=== PATIENT | male | born 1950 | race Caucasian/White ===

== ENCOUNTER 2017-09-11 11:40 | Inpatient (IN) | payer MEDICARE, MEDICAID ==
[~2017-09-11] VITALS: Ht 180.3 cm; Wt 72.3 kg
[~2017-09-11 11:40] MED LIST: AMIO200T57 PO; APIX5TAB3 PO; ASPI-845 PO; CARV-50 PO; FURO-149 PO; LISI-642 PO; NITR0.4T48 SL
[2017-09-11] MEDS ORDERED: mag hydrox/Alum hydrox/simeth 30ml oral suspension PO PRN (12:20)
[2017-09-11] MEDS ORDERED: acetaminophen 325mg tablet PO PRN ×2 (12:20)
[2017-09-11] MEDS ORDERED: magnesium hydroxide 30ml (MOM) UD suspension PO PRN (12:20)
[2017-09-11] MEDS ORDERED: LACT1CAP26 PO (13:37)
[2017-09-11] MEDS ORDERED: CEPH500C2 PO (13:37)
[2017-09-11] MEDS ORDERED: MELA3TAB PO (13:37)
[2017-09-11] MEDS ORDERED: nitroGLYCERIN 0.4mg SUBLingual tab SL PRN (14:00)
[2017-09-11 18:57] LABS: CHOL/HDL RATIO 4.7 (0.00-4.99); CHOLESTEROL 140 MG/DL (0-200); HDL CHOLESTEROL 30 MG/DL (35-60); LDL CHOLESTEROL 92 MG/DL (50-100); TRIGLYCERIDES 118 MG/DL (20-135)
[2017-09-11 19:00] VITALS: BP 118/74
[2017-09-11] MEDS: oxyCODONE/APAP 10/325mg tablet PO PRN ×2 (19:12→22:08)
[2017-09-11] MEDS: lactobacillus rhamnosus 10,000 MMU CELLS/CAPSULE PO SCH (20:21)
[2017-09-11] MEDS: Melatonin 3mg tablet PO SCH (20:22)
[2017-09-11] MEDS: cephalexin 500mg capsule PO SCH (20:22)
[2017-09-12] MEDS: oxyCODONE/APAP 10/325mg tablet PO PRN ×3 (05:32→19:02)
[2017-09-12 08:00] VITALS: BP 106/69
[2017-09-12] MEDS: furosemide 40mg tablet PO SCH (08:06)
[2017-09-12] MEDS: cephalexin 500mg capsule PO SCH ×3 (08:06→21:34)
[2017-09-12] MEDS: apixaban 5mg tablet PO SCH (08:06)
[2017-09-12] MEDS: aspirin 325mg tablet, delayed-release (Ecotrin) PO SCH (08:06)
[2017-09-12] MEDS: lactobacillus rhamnosus 10,000 MMU CELLS/CAPSULE PO SCH ×2 (08:06→21:33)
[2017-09-12] MEDS: amiodarone 200mg tablet PO SCH (15:42)
[2017-09-12 20:00] VITALS: BP 99/61
[2017-09-12 21:00] VITALS: BP 105/60
[2017-09-12] MEDS: carVEDilol 3.125mg tablet PO SCH (21:33)
[2017-09-12] MEDS: Melatonin 3mg tablet PO SCH (21:34)
[2017-09-12] MEDS: traZODone 50mg tablet PO PRN (22:24)
[2017-09-13] MEDS: oxyCODONE/APAP 10/325mg tablet PO PRN ×4 (01:41→20:33)
[2017-09-13] MEDS: traZODone 50mg tablet PO PRN (01:42)
[2017-09-13 08:00] VITALS: BP 109/75
[2017-09-13] MEDS: amiodarone 200mg tablet PO SCH (08:08)
[2017-09-13] MEDS: cephalexin 500mg capsule PO SCH ×3 (08:08→20:30)
[2017-09-13] MEDS: carVEDilol 3.125mg tablet PO SCH ×2 (08:09→20:30)
[2017-09-13] MEDS: apixaban 5mg tablet PO SCH (08:10)
[2017-09-13] MEDS: aspirin 325mg tablet, delayed-release (Ecotrin) PO SCH (08:10)
[2017-09-13] MEDS: duloxetine 30mg CAPSULE.DR PO SCH (08:10)
[2017-09-13] MEDS: lactobacillus rhamnosus 10,000 MMU CELLS/CAPSULE PO SCH ×2 (08:10→20:30)
[2017-09-13 19:00] VITALS: BP 108/65
[2017-09-13] MEDS ORDERED: traZODone 50mg tablet PO SCH (21:00)
[2017-09-14] MEDS: oxyCODONE/APAP 10/325mg tablet PO PRN ×4 (01:43→20:13)
[2017-09-14 08:00] VITALS: BP 112/62
[2017-09-14] MEDS: carVEDilol 3.125mg tablet PO SCH ×2 (08:20→20:13)
[2017-09-14] MEDS: amiodarone 200mg tablet PO SCH (08:20)
[2017-09-14] MEDS: lactobacillus rhamnosus 10,000 MMU CELLS/CAPSULE PO SCH ×2 (08:20→20:14)
[2017-09-14] MEDS: duloxetine 30mg CAPSULE.DR PO SCH ×2 (08:20→13:55)
[2017-09-14] MEDS: apixaban 5mg tablet PO SCH (08:20)
[2017-09-14] MEDS: cephalexin 500mg capsule PO SCH ×3 (08:20→20:14)
[2017-09-14] MEDS: furosemide 40mg tablet PO SCH (08:21)
[2017-09-14] MEDS: aspirin 325mg tablet, delayed-release (Ecotrin) PO SCH (08:21)
[2017-09-14 09:43] LABS: BASOPHILS # (AUTO) 0.1 X10'3 (0-0.2); BASOPHILS % (AUTO) 1.1 % (0-1); EOSINOPHILS # (AUTO) 0.2 X10'3 (0-0.9); EOSINOPHILS % (AUTO) 1.9 % (0-6); HEMATOCRIT 26.8 % (42.0-52.0); HEMOGLOBIN 8.9 g/dl (14.0-17.9); LYMPHOCYTES % (AUTO) 20.3 % (21-51); MEAN CORPUSCULAR HEMOGLOBIN 30.9 PG (27.0-31.0); MEAN CORPUSCULAR HGB CONC 33.4 % (33.0-36.5); MEAN CORPUSCULAR VOLUME 92.6 FL (78-98); MEAN PLATELET VOLUME 8.5 FL (7.4-10.4); MONOCYTES # (AUTO) 0.9 X10'3 (0-0.9); MONOCYTES % (AUTO) 9.1 % (2-12); NEUTROPHILS # (AUTO) 6.7 X10'3 (1.8-7.7); NEUTROPHILS % (AUTO) 67.6 % (42-75); PLATELET COUNT 266 X10'3 (140-440); RED CELL DISTRIBUTION WIDTH 14.8 % (11.5-14.5); WHITE BLOOD COUNT 9.9 X10'3 (4.5-11.0)
[2017-09-14 19:00] VITALS: BP 107/54
[2017-09-14] MEDS: traZODone 50mg tablet PO SCH (22:00)
[2017-09-15] MEDS: oxyCODONE/APAP 10/325mg tablet PO PRN ×4 (04:22→22:07)
[2017-09-15 08:00] VITALS: BP 110/67
[2017-09-15] MEDS: amiodarone 200mg tablet PO SCH (08:19)
[2017-09-15] MEDS: cephalexin 500mg capsule PO SCH ×3 (08:19→22:02)
[2017-09-15] MEDS: apixaban 5mg tablet PO SCH (08:19)
[2017-09-15] MEDS: carVEDilol 3.125mg tablet PO SCH ×2 (08:19→22:05)
[2017-09-15] MEDS: aspirin 325mg tablet, delayed-release (Ecotrin) PO SCH (08:19)
[2017-09-15] MEDS: duloxetine 30mg CAPSULE.DR PO SCH ×2 (08:19→13:12)
[2017-09-15] MEDS: lactobacillus rhamnosus 10,000 MMU CELLS/CAPSULE PO SCH ×2 (08:19→22:05)
[2017-09-15 19:00] VITALS: BP 94/63
[2017-09-15] MEDS: traZODone 50mg tablet PO SCH (22:04)
[2017-09-16] MEDS: oxyCODONE/APAP 10/325mg tablet PO PRN ×4 (03:20→21:57)
[2017-09-16 08:00] VITALS: BP 111/67
[2017-09-16] MEDS: carVEDilol 3.125mg tablet PO SCH ×2 (08:30→21:57)
[2017-09-16] MEDS: duloxetine 30mg CAPSULE.DR PO SCH ×2 (08:30→15:47)
[2017-09-16] MEDS: apixaban 5mg tablet PO SCH (08:30)
[2017-09-16] MEDS: amiodarone 200mg tablet PO SCH (08:30)
[2017-09-16] MEDS: furosemide 40mg tablet PO SCH (08:30)
[2017-09-16] MEDS: cephalexin 500mg capsule PO SCH ×3 (08:30→21:55)
[2017-09-16] MEDS: aspirin 325mg tablet, delayed-release (Ecotrin) PO SCH (08:30)
[2017-09-16] MEDS: lactobacillus rhamnosus 10,000 MMU CELLS/CAPSULE PO SCH ×2 (08:30→21:56)
[2017-09-16 20:00] VITALS: BP 110/62
[2017-09-16] MEDS: traZODone 50mg tablet PO SCH (21:56)
[2017-09-17] MEDS: oxyCODONE/APAP 10/325mg tablet PO PRN ×5 (02:13→23:15)
[2017-09-17] MEDS ORDERED: ondansetron 4mg rapidly disintigrating tab PO ONE (07:20)
[2017-09-17 08:00] VITALS: BP 103/64
[2017-09-17] MEDS: cephalexin 500mg capsule PO SCH (08:00)
[2017-09-17] MEDS: lactobacillus rhamnosus 10,000 MMU CELLS/CAPSULE PO SCH ×2 (08:35→19:07)
[2017-09-17] MEDS: amiodarone 200mg tablet PO SCH (09:24)
[2017-09-17] MEDS: aspirin 325mg tablet, delayed-release (Ecotrin) PO SCH (10:04)
[2017-09-17] MEDS: apixaban 5mg tablet PO SCH (10:04)
[2017-09-17] MEDS: carVEDilol 3.125mg tablet PO SCH ×2 (10:04→19:07)
[2017-09-17] MEDS ORDERED: ondansetron 4mg rapidly disintigrating tab PO PRN (11:20)
[2017-09-17 20:00] VITALS: BP 95/56
[2017-09-17] MEDS: traZODone 50mg tablet PO SCH (23:15)
[2017-09-18 08:00] VITALS: BP 101/66
[2017-09-18] MEDS: lactobacillus rhamnosus 10,000 MMU CELLS/CAPSULE PO SCH ×2 (08:01→19:55)
[2017-09-18] MEDS: apixaban 5mg tablet PO SCH (08:02)
[2017-09-18] MEDS: aspirin 325mg tablet, delayed-release (Ecotrin) PO SCH (08:03)
[2017-09-18] MEDS: furosemide 40mg tablet PO SCH (08:03)
[2017-09-18] MEDS: amiodarone 200mg tablet PO SCH (08:03)
[2017-09-18] MEDS: carVEDilol 3.125mg tablet PO SCH ×2 (08:03→19:55)
[2017-09-18] MEDS: oxyCODONE/APAP 10/325mg tablet PO PRN ×4 (08:31→23:52)
[2017-09-18] MEDS: docusate sod 100mg capsule PO PRN (20:00)
[2017-09-18 20:07] VITALS: BP 98/59
[2017-09-18] MEDS: traZODone 50mg tablet PO SCH (21:00)
[2017-09-18] MEDS ORDERED: traZODone 150mg tablet PO ONE (23:30)
[2017-09-19] MEDS: oxyCODONE/APAP 10/325mg tablet PO PRN ×4 (07:53→21:04)
[2017-09-19] MEDS: carVEDilol 3.125mg tablet PO SCH ×2 (08:00→21:02)
[2017-09-19 08:41] VITALS: BP 92/56
[2017-09-19] MEDS: apixaban 5mg tablet PO SCH (08:48)
[2017-09-19] MEDS: amiodarone 200mg tablet PO SCH (08:48)
[2017-09-19] MEDS: lactobacillus rhamnosus 10,000 MMU CELLS/CAPSULE PO SCH ×2 (08:48→21:02)
[2017-09-19] MEDS: aspirin 325mg tablet, delayed-release (Ecotrin) PO SCH (08:48)
[2017-09-19] MEDS ORDERED: venlafaxine XR 37.5mg cap (Q24H) PO ONE (12:20)
[2017-09-19 19:05] VITALS: BP 117/71
[2017-09-20] MEDS: traZODone 50mg tablet PO SCH ×2 (00:51→22:35)
[2017-09-20] MEDS: oxyCODONE/APAP 10/325mg tablet PO PRN ×5 (01:07→22:35)
[2017-09-20 08:00] VITALS: BP 111/65
[2017-09-20] MEDS ORDERED: venlafaxine XR 75mg capsule (Q24H) PO SCH (08:00)
[2017-09-20 08:02] LABS: BASOPHILS # (AUTO) 0.1 X10'3 (0-0.2); BASOPHILS % (AUTO) 0.7 % (0-1); EOSINOPHILS # (AUTO) 0.2 X10'3 (0-0.9); EOSINOPHILS % (AUTO) 2.2 % (0-6); HEMATOCRIT 28.6 % (42.0-52.0); HEMOGLOBIN 9.4 g/dl (14.0-17.9); LYMPHOCYTES % (AUTO) 23.7 % (21-51); MEAN CORPUSCULAR HEMOGLOBIN 29.8 PG (27.0-31.0); MEAN CORPUSCULAR HGB CONC 32.9 % (33.0-36.5); MEAN CORPUSCULAR VOLUME 90.6 FL (78-98); MONOCYTES # (AUTO) 0.8 X10'3 (0-0.9); MONOCYTES % (AUTO) 9.5 % (2-12); NEUTROPHILS # (AUTO) 5.5 X10'3 (1.8-7.7); NEUTROPHILS % (AUTO) 63.9 % (42-75); PLATELET COUNT 323 X10'3 (140-440); RED BLOOD COUNT 3.16 X10'6 (4.70-6.10); RED CELL DISTRIBUTION WIDTH 14.9 % (11.5-14.5); WHITE BLOOD COUNT 8.6 X10'3 (4.5-11.0)
[2017-09-20] MEDS: carVEDilol 3.125mg tablet PO SCH ×2 (08:11→20:00)
[2017-09-20] MEDS: amiodarone 200mg tablet PO SCH (08:11)
[2017-09-20] MEDS: lactobacillus rhamnosus 10,000 MMU CELLS/CAPSULE PO SCH ×2 (08:11→22:34)
[2017-09-20] MEDS: aspirin 325mg tablet, delayed-release (Ecotrin) PO SCH (08:11)
[2017-09-20] MEDS: apixaban 5mg tablet PO SCH (08:12)
[2017-09-20] MEDS: furosemide 40mg tablet PO SCH (08:13)
[2017-09-20] MEDS: venlafaxine 37.5mg tablet PO SCH (09:10)
[2017-09-20 20:00] VITALS: BP 89/60
[2017-09-21 05:35] VITALS: BP 106/68
[2017-09-21] MEDS ORDERED: aspirin 325mg tablet PO ONE (05:45)
[2017-09-21] MEDS ORDERED: furosemide 40mg tablet PO PRN (05:55)
[2017-09-21] MEDS: oxyCODONE/APAP 10/325mg tablet PO PRN ×2 (06:58→12:29)
[2017-09-21] MEDS: carVEDilol 3.125mg tablet PO SCH (08:00)
[2017-09-21 08:09] VITALS: BP 117/70
[2017-09-21 08:13] VITALS: BP 97/66
[2017-09-21] MEDS: aspirin 325mg tablet, delayed-release (Ecotrin) PO SCH (08:14)
[2017-09-21] MEDS: lactobacillus rhamnosus 10,000 MMU CELLS/CAPSULE PO SCH (08:15)
[2017-09-21] MEDS: venlafaxine 37.5mg tablet PO SCH (08:15)
[2017-09-21] MEDS: apixaban 5mg tablet PO SCH (08:15)
[2017-09-21] MEDS: amiodarone 200mg tablet PO SCH (08:15)
[2017-09-21 08:42] LABS: TROPONIN I 0.4 NG/ML (0.0-0.05)
[2017-09-21 09:43] VITALS: BP 95/66
[2017-09-21 13:25] VITALS: BP 115/77
[2017-09-21] MEDS ORDERED: LACT10SO (16:40)
== END 2017-09-21 14:58 | disposition short-term general hospital (02) | DRG 885 ==
LOC: ADULT MH 11:40
PROVIDERS: ADMIT Psychiatry & Neurology Psychiatry; ATTEND Psychiatry & Neurology Psychiatry
DX: F33.2 Major depressive disorder, recurrent severe without psychotic features (principal); R45.851 Suicidal ideations; F11.11 Opioid abuse, in remission; F41.9 Anxiety disorder, unspecified; I11.0 Hypertensive heart disease with heart failure; I48.0 Paroxysmal atrial fibrillation; I25.10 Atherosclerotic heart disease of native coronary artery without angina pectoris; D64.9 Anemia, unspecified; B19.20 Unspecified viral hepatitis C without hepatic coma; I50.9 Heart failure, unspecified; Z86.73 Personal history of transient ischemic attack (TIA), and cerebral infarction without residual deficits; I25.2 Old myocardial infarction; Z95.1 Presence of aortocoronary bypass graft; Z79.899 Other long term (current) drug therapy; Z79.01 Long term (current) use of anticoagulants; Z79.82 Long term (current) use of aspirin
CPT/HCPCS: 36415; 71045; 80061; 83880; 84484; 85025; 87070; 93005; A6213; A6255; A6257

== ENCOUNTER 2017-09-21 15:14 | Inpatient (IN) | payer MEDICARE, MEDICAID ==
[~2017-09-21] VITALS: Ht 180.3 cm; Wt 72.0 kg
[~2017-09-21 15:14] MED LIST changes: +CEPH500C2 PO; +LACT1CAP26 PO; +MELA3TAB PO
[2017-09-21] MEDS ORDERED: magnesium 4gm in 100ml NS 100 ML IV PRN (15:15)
[2017-09-21] MEDS ORDERED: HYDROcodone/acetaminophen 10/325mg tab PO PRN (15:15)
[2017-09-21] MEDS ORDERED: ondansetron/PF 4mg/2ml inj IV PRN (15:15)
[2017-09-21] MEDS ORDERED: bisacodyl 10mg suppository rectal RC PRN (15:15)
[2017-09-21] MEDS ORDERED: acetaminophen 325mg tablet PO PRN (15:15)
[2017-09-21] MEDS ORDERED: morphine 4 MG/ML inj SYRINge IV PRN ×2 (15:15)
[2017-09-21] MEDS ORDERED: potassium Cl 20 mEq SR tablet PO PRN ×2 (15:15)
[2017-09-21] MEDS ORDERED: magnesium hydroxide 30ml (MOM) UD suspension PO PRN (15:15)
[2017-09-21] MEDS ORDERED: magnesium 2GM in 50ml NS 50 ML IV PRN (15:15)
[2017-09-21] MEDS ORDERED: mag hydrox/Alum hydrox/simeth 30ml oral suspension PO PRN (15:15)
[2017-09-21] MEDS ORDERED: magnesium Cl slow-release 64mg tablet PO PRN (15:15)
[2017-09-21] MEDS ORDERED: potassium Cl 40MEQ/NS 500ml 500 ML IV PRN ×2 (15:15)
[2017-09-21] MEDS ORDERED: HYDROcodone/acetaminophen 5mg/325mg tablet PO PRN (15:15)
[2017-09-21] MEDS ORDERED: nitroGLYCERIN 0.4mg SUBLingual tab SL PRN (15:20)
[2017-09-21 15:40] VITALS: BP 110/67
[2017-09-21] MEDS ORDERED: nitroGLYCERIN 0.2mg/hour patch TD SCH (15:50)
[2017-09-21 16:19] LABS: BASOPHILS # (AUTO) 0.1 X10'3 (0-0.2); BASOPHILS % (AUTO) 0.6 % (0-1); EOSINOPHILS # (AUTO) 0.1 X10'3 (0-0.9); EOSINOPHILS % (AUTO) 1.5 % (0-6); HEMATOCRIT 28.6 % (42.0-52.0); HEMOGLOBIN 9.6 g/dl (14.0-17.9); LYMPHOCYTES # (AUTO) 2.4 X10'3 (1.1-4.8); LYMPHOCYTES % (AUTO) 27.7 % (21-51); MEAN CORPUSCULAR HEMOGLOBIN 29.9 PG (27.0-31.0); MEAN CORPUSCULAR HGB CONC 33.4 % (33.0-36.5); MEAN CORPUSCULAR VOLUME 89.6 FL (78-98); MEAN PLATELET VOLUME 8.1 FL (7.4-10.4); MONOCYTES % (AUTO) 11.3 % (2-12); NEUTROPHILS # (AUTO) 5.1 X10'3 (1.8-7.7); NEUTROPHILS % (AUTO) 58.9 % (42-75); PLATELET COUNT 315 X10'3 (140-440); RED CELL DISTRIBUTION WIDTH 14.8 % (11.5-14.5); WHITE BLOOD COUNT 8.7 X10'3 (4.5-11.0)
[2017-09-21] MEDS ORDERED: LACT10SO (16:40)
[2017-09-21 16:41] LABS: ALANINE AMINOTRANSFERASE 24 U/L (12-78); ALBUMIN/GLOBULIN RATIO 0.7 (1.1-1.5); ALKALINE PHOSPHATASE 78 IU/L (46-116); ANION GAP 9 (8-16); ASPARTATE AMINO TRANSFERASE 28 U/L (10-37); BILIRUBIN,TOTAL 0.3 MG/DL (0.1-1.0); BLOOD UREA NITROGEN 21 MG/DL (7-18); BUN/CREATININE RATIO 14.6 (5.4-32.0); CALCIUM 8.5 MG/DL (8.5-10.1); CHLORIDE 102 MMOL/L (99-107); CREATININE 1.44 MG/DL (0.60-1.10); GLUCOSE 101 MG/DL (70-104); SODIUM 140 MMOL/L (135-145); TOTAL CARBON DIOXIDE 28.6 MMOL/L (24-32); TOTAL PROTEIN 7.1 G/DL (6.4-8.2); eGFR 49 ML/MIN
[2017-09-21 16:50] LABS: TROPONIN I 0.42 NG/ML (0.0-0.05)
[2017-09-21 18:00] VITALS: BP 102/60
[2017-09-21] MEDS ORDERED: carVEDilol 12.5mg tablet PO SCH (20:00)
[2017-09-21] MEDS: apixaban 5mg tablet PO SCH (20:41)
[2017-09-21] MEDS: cephalexin 500mg capsule PO SCH (20:41)
[2017-09-21] MEDS: carVEDilol 3.125mg tablet PO SCH (20:41)
[2017-09-21] MEDS: docusate sod 100mg capsule PO SCH (20:42)
[2017-09-21] MEDS: Melatonin 3mg tablet PO SCH (20:42)
[2017-09-21] MEDS ORDERED: CEPHALEXIN MONOHYDRATE PO SCH (21:00)
[2017-09-21] MEDS: traZODone 150mg tablet PO SCH (21:52)
[2017-09-21] MEDS: oxyCODONE/APAP 10/325mg tablet PO PRN (21:53)
[2017-09-21 22:00] VITALS: BP 94/57
[2017-09-22 02:00] VITALS: BP 96/56
[2017-09-22] MEDS: oxyCODONE/APAP 10/325mg tablet PO PRN ×5 (03:19→23:23)
[2017-09-22 05:53] LABS: ALANINE AMINOTRANSFERASE 21 U/L (12-78); ALBUMIN 2.6 G/DL (3.4-5.0); ALBUMIN/GLOBULIN RATIO 0.7 (1.1-1.5); ALKALINE PHOSPHATASE 68 IU/L (46-116); ANION GAP 8 (8-16); ASPARTATE AMINO TRANSFERASE 28 U/L (10-37); BILIRUBIN,TOTAL 0.3 MG/DL (0.1-1.0); BLOOD UREA NITROGEN 19 MG/DL (7-18); BUN/CREATININE RATIO 15.2 (5.4-32.0); CALCIUM 8.1 MG/DL (8.5-10.1); CHLORIDE 104 MMOL/L (99-107); CHOL/HDL RATIO 4.6 (0.00-4.99); CHOLESTEROL 111 MG/DL (0-200); CREATININE 1.25 MG/DL (0.60-1.10); GLUCOSE 105 MG/DL (70-104); HDL CHOLESTEROL 24 MG/DL (35-60); LDL CHOLESTEROL 71 MG/DL (50-100); MAGNESIUM 2.1 MG/DL (1.5-2.4); POTASSIUM 3.8 MMOL/L (3.5-5.1); SODIUM 139 MMOL/L (135-145); TOTAL CARBON DIOXIDE 26.8 MMOL/L (24-32); TOTAL PROTEIN 6.2 G/DL (6.4-8.2); TRIGLYCERIDES 90 MG/DL (20-135); eGFR 58 ML/MIN
[2017-09-22 06:00] VITALS: BP 107/69
[2017-09-22] MEDS: docusate sod 100mg capsule PO SCH ×2 (07:31→20:00)
[2017-09-22] MEDS: cephalexin 500mg capsule PO SCH ×3 (07:31→20:20)
[2017-09-22] MEDS: apixaban 5mg tablet PO SCH ×2 (07:32→20:21)
[2017-09-22] MEDS: carVEDilol 3.125mg tablet PO SCH ×2 (07:32→20:21)
[2017-09-22] MEDS: aspirin 81mg tablet.DR PO SCH (07:32)
[2017-09-22] MEDS: amiodarone 200mg tablet PO SCH (07:32)
[2017-09-22] MEDS: furosemide 20MG tablet PO SCH (07:32)
[2017-09-22] MEDS: lisinopril 2.5mg tablet PO SCH (07:32)
[2017-09-22] MEDS: venlafaxine XR 37.5mg cap (Q24H) PO SCH (07:33)
[2017-09-22] MEDS ORDERED: K and/or MAG REPLACEMENT MC SCH (08:00)
[2017-09-22] MEDS ORDERED: lisinopril 5mg tablet PO SCH (08:00)
[2017-09-22 11:00] VITALS: BP 90/54
[2017-09-22] MEDS: nitroGLYCERIN 0.4mg/hour patch TD SCH (11:08)
[2017-09-22 15:00] VITALS: BP 97/56
[2017-09-22 18:00] VITALS: BP 102/52
[2017-09-22] MEDS: Melatonin 3mg tablet PO SCH (20:20)
[2017-09-22] MEDS: lactobacillus rhamnosus 10,000 MMU CELLS/CAPSULE PO SCH (20:21)
[2017-09-22 22:00] VITALS: BP 96/50
[2017-09-22] MEDS: traZODone 150mg tablet PO SCH (23:23)
[2017-09-23 02:00] VITALS: BP 94/43
[2017-09-23] MEDS: oxyCODONE/APAP 10/325mg tablet PO PRN ×2 (05:55→12:53)
[2017-09-23 06:11] LABS: ALANINE AMINOTRANSFERASE 24 U/L (12-78); ALBUMIN 2.8 G/DL (3.4-5.0); ALBUMIN/GLOBULIN RATIO 0.8 (1.1-1.5); ALKALINE PHOSPHATASE 69 IU/L (46-116); ANION GAP 9 (8-16); ASPARTATE AMINO TRANSFERASE 28 U/L (10-37); BILIRUBIN,TOTAL 0.3 MG/DL (0.1-1.0); BLOOD UREA NITROGEN 15 MG/DL (7-18); CALCIUM 8.4 MG/DL (8.5-10.1); CHLORIDE 104 MMOL/L (99-107); CREATININE 1.15 MG/DL (0.60-1.10); GLUCOSE 104 MG/DL (70-104); MAGNESIUM 2.2 MG/DL (1.5-2.4); POTASSIUM 3.9 MMOL/L (3.5-5.1); SODIUM 141 MMOL/L (135-145); TOTAL CARBON DIOXIDE 27.7 MMOL/L (24-32); TOTAL PROTEIN 6.5 G/DL (6.4-8.2); eGFR 64 ML/MIN
[2017-09-23 07:00] VITALS: BP 99/60
[2017-09-23] MEDS ORDERED: furosemide 40mg tablet PO SCH (08:00)
[2017-09-23] MEDS ORDERED: COR3.125T PO (11:05)
[2017-09-23] MEDS ORDERED: NIT10P TD ×2 (11:05→13:32)
[2017-09-23] MEDS ORDERED: ASPI-1071 PO (11:05)
[2017-09-23] MEDS ORDERED: EFF37.5XRC PO (11:05)
[2017-09-23] MEDS ORDERED: TRAZ150T78 PO ×2 (11:05→13:32)
[2017-09-23] MEDS: lactobacillus rhamnosus 10,000 MMU CELLS/CAPSULE PO SCH (11:21)
[2017-09-23] MEDS: aspirin 81mg tablet.DR PO SCH (11:21)
[2017-09-23] MEDS: docusate sod 100mg capsule PO SCH (11:21)
[2017-09-23] MEDS: carVEDilol 3.125mg tablet PO SCH (11:21)
[2017-09-23] MEDS: amiodarone 200mg tablet PO SCH (11:21)
[2017-09-23] MEDS: cephalexin 500mg capsule PO SCH (11:22)
[2017-09-23] MEDS: furosemide 20MG tablet PO SCH (11:22)
[2017-09-23] MEDS: apixaban 5mg tablet PO SCH (11:22)
[2017-09-23] MEDS: venlafaxine XR 37.5mg cap (Q24H) PO SCH (11:22)
[2017-09-23] MEDS: lisinopril 2.5mg tablet PO SCH (11:22)
[2017-09-23] MEDS: nitroGLYCERIN 0.4mg/hour patch TD SCH (11:22)
[2017-09-23] MEDS ORDERED: ASPI-611 PO (13:25)
[2017-09-23] MEDS ORDERED: VENL37.55 PO (13:32)
[2017-09-23] MEDS ORDERED: CARV3.12 PO (13:32)
[2017-09-24] MEDS ORDERED: LISI-604 PO (16:50)
[2017-09-24] MEDS ORDERED: OXYC-511 PO (18:56)
== END 2017-09-23 13:20 | DRG 206 ==
LOC: PCU 3S 15:14 → UNDODISIN 09-23 13:20
PROVIDERS: ADMIT Internal Medicine; ATTEND Internal Medicine
DX: M94.0 Chondrocostal junction syndrome [Tietze] (principal); I42.9 Cardiomyopathy, unspecified; I50.22 Chronic systolic (congestive) heart failure; I24.9 Acute ischemic heart disease, unspecified; F32.9 Major depressive disorder, single episode, unspecified; I25.10 Atherosclerotic heart disease of native coronary artery without angina pectoris; I37.1 Nonrheumatic pulmonary valve insufficiency; Z66 Do not resuscitate; I48.91 Unspecified atrial fibrillation; Z86.73 Personal history of transient ischemic attack (TIA), and cerebral infarction without residual deficits; Z95.1 Presence of aortocoronary bypass graft; Z95.810 Presence of automatic (implantable) cardiac defibrillator; Z79.899 Other long term (current) drug therapy; Z79.01 Long term (current) use of anticoagulants; Z79.82 Long term (current) use of aspirin
CPT/HCPCS: 36415; 80053; 80061; 83735; 83880; 84132; 84439; 84443; 84484; 85025; 87070; 93306; A6449

== ENCOUNTER 2017-09-23 10:55 | Inpatient (IN) | payer MEDICARE, MEDICAID ==
[~2017-09-23] VITALS: Ht 180.3 cm; Wt 73.6 kg
[~2017-09-23 10:55] MED LIST changes: -CEPH500C2 PO; +LACT10SO
[2017-09-23] MEDS ORDERED: COR3.125T PO (11:05)
[2017-09-23] MEDS ORDERED: ASPI-1071 PO (11:05)
[2017-09-23] MEDS ORDERED: TRAZ150T78 PO ×2 (11:05→13:32)
[2017-09-23] MEDS ORDERED: NIT10P TD ×2 (11:05→13:32)
[2017-09-23] MEDS ORDERED: EFF37.5XRC PO (11:05)
[2017-09-23] MEDS ORDERED: ASPI-611 PO (13:25)
[2017-09-23] MEDS ORDERED: CARV3.12 PO (13:32)
[2017-09-23] MEDS ORDERED: VENL37.55 PO (13:32)
[2017-09-23] MEDS ORDERED: nitroGLYCERIN 0.4mg SUBLingual tab SL PRN (13:35)
[2017-09-23] MEDS ORDERED: potassium Cl 20 mEq SR tablet PO PRN (13:50)
[2017-09-23] MEDS ORDERED: mag hydrox/Alum hydrox/simeth 30ml oral suspension PO PRN (13:50)
[2017-09-23] MEDS ORDERED: bisacodyl 10mg suppository rectal RC PRN (13:50)
[2017-09-23] MEDS ORDERED: potassium Cl 40MEQ/NS 500ml 500 ML IV PRN ×2 (13:50)
[2017-09-23 15:50] VITALS: BP 107/60
[2017-09-23] MEDS: oxyCODONE/APAP 10/325mg tablet PO PRN ×2 (17:24→22:41)
[2017-09-23 20:00] VITALS: BP 94/72
[2017-09-23] MEDS: carVEDilol 3.125mg tablet PO SCH (20:00)
[2017-09-23] MEDS: docusate sod 100mg capsule PO SCH (20:08)
[2017-09-23] MEDS: cephalexin 500mg capsule PO SCH (20:09)
[2017-09-23] MEDS: lactobacillus rhamnosus 10,000 MMU CELLS/CAPSULE PO SCH (20:09)
[2017-09-23] MEDS: Melatonin 3mg tablet PO SCH (20:09)
[2017-09-23] MEDS: apixaban 5mg tablet PO SCH (20:09)
[2017-09-23] MEDS: traZODone 150mg tablet PO SCH (22:40)
[2017-09-24] MEDS: oxyCODONE/APAP 10/325mg tablet PO PRN ×4 (07:21→22:35)
[2017-09-24 08:00] VITALS: BP 109/66
[2017-09-24] MEDS ORDERED: venlafaxine XR 37.5mg cap (Q24H) PO SCH (08:00)
[2017-09-24] MEDS: cephalexin 500mg capsule PO SCH ×3 (08:10→20:13)
[2017-09-24] MEDS: aspirin 81mg tab.chew PO SCH (08:10)
[2017-09-24] MEDS: lactobacillus rhamnosus 10,000 MMU CELLS/CAPSULE PO SCH ×2 (08:10→20:11)
[2017-09-24] MEDS: apixaban 5mg tablet PO SCH ×2 (08:10→20:11)
[2017-09-24] MEDS: docusate sod 100mg capsule PO SCH ×2 (08:10→20:11)
[2017-09-24] MEDS: carVEDilol 3.125mg tablet PO SCH ×2 (08:10→20:00)
[2017-09-24] MEDS: amiodarone 200mg tablet PO SCH (08:10)
[2017-09-24] MEDS: furosemide 20MG tablet PO SCH (08:10)
[2017-09-24] MEDS: lisinopril 2.5mg tablet PO SCH (08:23)
[2017-09-24] MEDS: nitroGLYCERIN 0.4mg/hour patch TD SCH (08:25)
[2017-09-24] MEDS ORDERED: LISI-604 PO (16:50)
[2017-09-24] MEDS ORDERED: OXYC-511 PO (18:56)
[2017-09-24 20:00] VITALS: BP 99/66
[2017-09-24] MEDS: Melatonin 3mg tablet PO SCH (20:11)
[2017-09-24] MEDS: traZODone 150mg tablet PO SCH (22:34)
[2017-09-25] MEDS: oxyCODONE/APAP 10/325mg tablet PO PRN ×5 (04:33→22:42)
[2017-09-25 08:00] VITALS: BP 120/70
[2017-09-25] MEDS: aspirin 81mg tab.chew PO SCH (08:45)
[2017-09-25] MEDS: venlafaxine XR 37.5mg cap (Q24H) PO SCH (08:45)
[2017-09-25] MEDS: docusate sod 100mg capsule PO SCH ×2 (08:45→20:17)
[2017-09-25] MEDS: apixaban 5mg tablet PO SCH ×2 (08:45→20:18)
[2017-09-25] MEDS: nitroGLYCERIN 0.4mg/hour patch TD SCH (08:45)
[2017-09-25] MEDS: cephalexin 500mg capsule PO SCH ×3 (08:45→20:17)
[2017-09-25] MEDS: lisinopril 2.5mg tablet PO SCH (08:45)
[2017-09-25] MEDS: furosemide 20MG tablet PO SCH (08:45)
[2017-09-25] MEDS: lactobacillus rhamnosus 10,000 MMU CELLS/CAPSULE PO SCH ×2 (08:46→20:17)
[2017-09-25] MEDS: amiodarone 200mg tablet PO SCH (08:46)
[2017-09-25] MEDS: carVEDilol 3.125mg tablet PO SCH ×2 (08:46→20:00)
[2017-09-25] MEDS: Melatonin 3mg tablet PO SCH (20:19)
[2017-09-25 20:31] VITALS: BP 103/60
[2017-09-25] MEDS: traZODone 150mg tablet PO SCH (22:40)
[2017-09-26] MEDS: oxyCODONE/APAP 10/325mg tablet PO PRN ×4 (04:56→22:04)
[2017-09-26 08:00] VITALS: BP 103/62
[2017-09-26] MEDS: cephalexin 500mg capsule PO SCH ×3 (08:39→20:36)
[2017-09-26] MEDS: carVEDilol 3.125mg tablet PO SCH ×2 (08:39→20:36)
[2017-09-26] MEDS: nitroGLYCERIN 0.4mg/hour patch TD SCH (08:39)
[2017-09-26] MEDS: amiodarone 200mg tablet PO SCH (08:39)
[2017-09-26] MEDS: furosemide 20MG tablet PO SCH (08:39)
[2017-09-26] MEDS: apixaban 5mg tablet PO SCH ×2 (08:39→20:36)
[2017-09-26] MEDS: lactobacillus rhamnosus 10,000 MMU CELLS/CAPSULE PO SCH ×2 (08:39→20:36)
[2017-09-26] MEDS: lisinopril 2.5mg tablet PO SCH (08:39)
[2017-09-26] MEDS: docusate sod 100mg capsule PO SCH ×2 (08:39→20:35)
[2017-09-26] MEDS: venlafaxine XR 37.5mg cap (Q24H) PO SCH (08:40)
[2017-09-26] MEDS: aspirin 81mg tab.chew PO SCH (08:40)
[2017-09-26] MEDS ORDERED: tuberculin, purif. prot. deriv. 5 units/0.1ml ID ONE (14:55)
[2017-09-26 19:22] VITALS: BP 85/49
[2017-09-26 20:05] VITALS: BP 96/52
[2017-09-26] MEDS: Melatonin 3mg tablet PO SCH (20:36)
[2017-09-26] MEDS: traZODone 150mg tablet PO SCH (22:05)
[2017-09-27] MEDS ORDERED: oxyCODONE/APAP 5-325mg tablet PO ONE (00:10)
[2017-09-27] MEDS: oxyCODONE/APAP 10/325mg tablet PO PRN ×4 (06:44→22:35)
[2017-09-27 08:00] VITALS: BP 101/60
[2017-09-27] MEDS: nitroGLYCERIN 0.4mg/hour patch TD SCH (08:02)
[2017-09-27] MEDS: lisinopril 2.5mg tablet PO SCH (08:02)
[2017-09-27] MEDS: apixaban 5mg tablet PO SCH ×2 (08:02→22:34)
[2017-09-27] MEDS: cephalexin 500mg capsule PO SCH ×3 (08:02→21:07)
[2017-09-27] MEDS: carVEDilol 3.125mg tablet PO SCH ×2 (08:02→20:00)
[2017-09-27] MEDS: aspirin 81mg tab.chew PO SCH (08:02)
[2017-09-27] MEDS: lactobacillus rhamnosus 10,000 MMU CELLS/CAPSULE PO SCH ×2 (08:02→21:07)
[2017-09-27] MEDS: amiodarone 200mg tablet PO SCH (08:02)
[2017-09-27] MEDS: furosemide 20MG tablet PO SCH (08:02)
[2017-09-27] MEDS: docusate sod 100mg capsule PO SCH ×2 (08:02→21:06)
[2017-09-27] MEDS: venlafaxine XR 37.5mg cap (Q24H) PO SCH (08:02)
[2017-09-27 19:00] VITALS: BP 88/44
[2017-09-27 20:45] VITALS: BP 104/62
[2017-09-27] MEDS: Melatonin 3mg tablet PO SCH (21:07)
[2017-09-27] MEDS: traZODone 150mg tablet PO SCH (22:34)
[2017-09-28] MEDS: oxyCODONE/APAP 10/325mg tablet PO PRN ×5 (02:19→21:15)
[2017-09-28 07:37] VITALS: BP_SYST 114; BP_SYST 99; BP_DIAS 58; BP_DIAS 67
[2017-09-28] MEDS: nitroGLYCERIN 0.4mg/hour patch TD SCH (08:00)
[2017-09-28] MEDS: lisinopril 2.5mg tablet PO SCH (08:20)
[2017-09-28] MEDS: aspirin 81mg tab.chew PO SCH (08:21)
[2017-09-28] MEDS: lactobacillus rhamnosus 10,000 MMU CELLS/CAPSULE PO SCH ×2 (08:21→21:16)
[2017-09-28] MEDS: carVEDilol 3.125mg tablet PO SCH ×2 (08:21→21:16)
[2017-09-28] MEDS: furosemide 20MG tablet PO SCH (08:21)
[2017-09-28] MEDS: docusate sod 100mg capsule PO SCH ×2 (08:21→21:16)
[2017-09-28] MEDS: cephalexin 500mg capsule PO SCH ×3 (08:21→21:16)
[2017-09-28] MEDS: venlafaxine XR 37.5mg cap (Q24H) PO SCH (08:21)
[2017-09-28] MEDS: apixaban 5mg tablet PO SCH ×2 (08:21→21:16)
[2017-09-28] MEDS: amiodarone 200mg tablet PO SCH (08:21)
[2017-09-28 19:00] VITALS: BP 106/61
[2017-09-28] MEDS: Melatonin 3mg tablet PO SCH (21:16)
[2017-09-28] MEDS: traZODone 150mg tablet PO SCH (21:17)
[2017-09-29] MEDS: oxyCODONE/APAP 10/325mg tablet PO PRN ×2 (03:41→07:54)
[2017-09-29 07:50] VITALS: BP 103/60
[2017-09-29] MEDS: venlafaxine XR 75mg capsule (Q24H) PO SCH (07:53)
[2017-09-29] MEDS: lisinopril 2.5mg tablet PO SCH (07:53)
[2017-09-29] MEDS: furosemide 20MG tablet PO SCH (07:53)
[2017-09-29] MEDS: cephalexin 500mg capsule PO SCH ×3 (07:55→20:50)
[2017-09-29] MEDS: apixaban 5mg tablet PO SCH ×2 (07:55→20:50)
[2017-09-29] MEDS: carVEDilol 3.125mg tablet PO SCH ×2 (07:55→20:00)
[2017-09-29] MEDS: amiodarone 200mg tablet PO SCH (07:55)
[2017-09-29] MEDS: lactobacillus rhamnosus 10,000 MMU CELLS/CAPSULE PO SCH ×2 (07:55→20:50)
[2017-09-29] MEDS: nitroGLYCERIN 0.4mg/hour patch TD SCH (07:56)
[2017-09-29] MEDS: docusate sod 100mg capsule PO SCH ×2 (07:56→20:49)
[2017-09-29] MEDS: aspirin 81mg tab.chew PO SCH (07:56)
[2017-09-29] MEDS ORDERED: oxyCODONE/APAP 10/325mg tablet PO SCH (11:00)
[2017-09-29] MEDS ORDERED: oxyCODONE/APAP 10/325mg tablet PO STA (11:44)
[2017-09-29 15:08] VITALS: BP 92/57
[2017-09-29] MEDS: oxyCODONE/APAP 10/325mg tablet PO SCH ×3 (15:44→23:40)
[2017-09-29 15:45] VITALS: BP 99/66
[2017-09-29 20:00] VITALS: BP 100/60
[2017-09-29] MEDS: Melatonin 3mg tablet PO SCH (20:50)
[2017-09-29] MEDS: traZODone 150mg tablet PO SCH (23:36)
[2017-09-30] MEDS: oxyCODONE/APAP 10/325mg tablet PO SCH ×6 (03:29→23:10)
[2017-09-30 08:00] VITALS: BP 106/58
[2017-09-30] MEDS: nitroGLYCERIN 0.4mg/hour patch TD SCH (08:00)
[2017-09-30] MEDS: apixaban 5mg tablet PO SCH ×2 (08:56→20:25)
[2017-09-30] MEDS: lisinopril 2.5mg tablet PO SCH (08:56)
[2017-09-30] MEDS: carVEDilol 3.125mg tablet PO SCH ×2 (08:56→20:25)
[2017-09-30] MEDS: cephalexin 500mg capsule PO SCH ×3 (08:56→20:25)
[2017-09-30] MEDS: venlafaxine XR 75mg capsule (Q24H) PO SCH (08:56)
[2017-09-30] MEDS: furosemide 20MG tablet PO SCH (08:56)
[2017-09-30] MEDS: docusate sod 100mg capsule PO SCH ×2 (08:56→20:25)
[2017-09-30] MEDS: aspirin 81mg tab.chew PO SCH (08:56)
[2017-09-30] MEDS: amiodarone 200mg tablet PO SCH (08:59)
[2017-09-30] MEDS: lactobacillus rhamnosus 10,000 MMU CELLS/CAPSULE PO SCH ×2 (09:04→20:25)
[2017-09-30 19:56] LABS: MAGNESIUM 2.2 MG/DL (1.5-2.4); POTASSIUM 4.7 MMOL/L (3.5-5.1); TROPONIN I < 0.04 NG/ML (0.0-0.05)
[2017-09-30] MEDS: Melatonin 3mg tablet PO SCH (20:25)
[2017-09-30] MEDS: traZODone 150mg tablet PO SCH (23:09)
[2017-10-01] MEDS: oxyCODONE/APAP 10/325mg tablet PO SCH ×6 (03:16→22:53)
[2017-10-01 08:00] VITALS: BP 111/66
[2017-10-01] MEDS: nitroGLYCERIN 0.4mg/hour patch TD SCH (08:00)
[2017-10-01] MEDS: apixaban 5mg tablet PO SCH ×2 (08:08→20:49)
[2017-10-01] MEDS: docusate sod 100mg capsule PO SCH ×2 (08:08→20:48)
[2017-10-01] MEDS: amiodarone 200mg tablet PO SCH (08:08)
[2017-10-01] MEDS: lactobacillus rhamnosus 10,000 MMU CELLS/CAPSULE PO SCH ×2 (08:08→20:48)
[2017-10-01] MEDS: lisinopril 2.5mg tablet PO SCH (08:08)
[2017-10-01] MEDS: cephalexin 500mg capsule PO SCH (08:08)
[2017-10-01] MEDS: carVEDilol 3.125mg tablet PO SCH ×2 (08:08→20:49)
[2017-10-01] MEDS: furosemide 20MG tablet PO SCH ×2 (08:08→20:00)
[2017-10-01] MEDS: aspirin 81mg tab.chew PO SCH (08:08)
[2017-10-01] MEDS: venlafaxine XR 75mg capsule (Q24H) PO SCH (08:08)
[2017-10-01 19:44] VITALS: BP 91/49
[2017-10-01] MEDS: Melatonin 3mg tablet PO SCH (20:48)
[2017-10-01] MEDS: traZODone 150mg tablet PO SCH (22:53)
[2017-10-02] MEDS: oxyCODONE/APAP 10/325mg tablet PO SCH ×2 (02:50→07:03)
[2017-10-02] MEDS ORDERED: APIX5TAB3 PO (07:13)
[2017-10-02] MEDS ORDERED: COR3.125T PO (07:13)
[2017-10-02] MEDS ORDERED: LISI2.5T2 PO (07:13)
[2017-10-02] MEDS ORDERED: MELA3TAB PO (07:13)
[2017-10-02] MEDS ORDERED: NIT10P TD (07:13)
[2017-10-02] MEDS ORDERED: POTA8TAB8 PO (07:13)
[2017-10-02] MEDS ORDERED: NITR0.4T51 SL (07:13)
[2017-10-02] MEDS ORDERED: VENL150T3 PO (07:13)
[2017-10-02] MEDS ORDERED: FURO20TA4 PO (07:13)
[2017-10-02] MEDS ORDERED: ASPI-1265 PO (07:13)
[2017-10-02] MEDS ORDERED: TRAZ150T78 PO (07:13)
[2017-10-02] MEDS ORDERED: AMIO200T57 PO (07:13)
[2017-10-02] MEDS ORDERED: PER10325T PO (07:13)
[2017-10-02] MEDS: carVEDilol 3.125mg tablet PO SCH (07:51)
[2017-10-02] MEDS: amiodarone 200mg tablet PO SCH (07:51)
[2017-10-02] MEDS: furosemide 20MG tablet PO SCH (07:51)
[2017-10-02] MEDS: venlafaxine XR 75mg capsule (Q24H) PO SCH (07:51)
[2017-10-02] MEDS: lactobacillus rhamnosus 10,000 MMU CELLS/CAPSULE PO SCH (07:51)
[2017-10-02] MEDS: aspirin 81mg tab.chew PO SCH (07:51)
[2017-10-02] MEDS: docusate sod 100mg capsule PO SCH (07:51)
[2017-10-02] MEDS: lisinopril 2.5mg tablet PO SCH (07:51)
[2017-10-02 08:00] VITALS: BP 115/77
[2017-10-02] MEDS: nitroGLYCERIN 0.4mg/hour patch TD SCH (08:00)
[2017-10-02] MEDS: apixaban 5mg tablet PO SCH (08:04)
== END 2017-10-02 10:30 | disposition home or self-care (01) | DRG 881 ==
LOC: ADULT MH 10:55 → UNDODISIN 09-26 14:20
PROVIDERS: ADMIT Psychiatry & Neurology Psychiatry; ATTEND Psychiatry & Neurology Psychiatry
DX: F32.9 Major depressive disorder, single episode, unspecified (principal); R45.851 Suicidal ideations; I50.22 Chronic systolic (congestive) heart failure; I42.9 Cardiomyopathy, unspecified; I48.0 Paroxysmal atrial fibrillation; I25.10 Atherosclerotic heart disease of native coronary artery without angina pectoris; X78.9XXD Intentional self-harm by unspecified sharp object, subsequent encounter; S51.812D Laceration without foreign body of left forearm, subsequent encounter; I25.2 Old myocardial infarction; Z95.810 Presence of automatic (implantable) cardiac defibrillator; Z95.1 Presence of aortocoronary bypass graft; Z79.82 Long term (current) use of aspirin; Z79.01 Long term (current) use of anticoagulants; Z79.899 Other long term (current) drug therapy; Z86.73 Personal history of transient ischemic attack (TIA), and cerebral infarction without residual deficits; Z82.49 Family history of ischemic heart disease and other diseases of the circulatory system; Y93.89 Activity, other specified; Y92.89 Other specified places as the place of occurrence of the external cause
CPT/HCPCS: 36415; 83735; 83880; 84132; 84484; A6449